=== PATIENT | female | born 1980 ===

== ENCOUNTER 2017-04-18 18:31 | Observation (INO) | payer OTHER ==
[2017-04-18] MEDS ORDERED: Sodium Chloride 0.9% 1,000 ML IV STA (19:05)
--- NOTE | 2017-04-18 19:10 | ED PDOC ---
HPI: Headache Time Seen by Provider: 04/18/17 18:45 Chief Complaint (Nursing): Headache Chief Complaint (Provider): Headache History Per: Patient History/Exam Limitations: no limitations Onset/Duration Of Symptoms: Days (1 week) Current Symptoms Are (Timing): Still Present Additional Complaint(s): Pt. with headache on the top of her head like a pounding. States no nausea, vomit, diarrhea, abd pain. Has no neck pain. No weakness, hearing issues, facial pain, numbness, tingles, vision changes. States here 2/6 for ear pain and headache. Had neg ct and given steroids and antibiotic drops for it. Not worst pain in her life. Past Medical History Reviewed: Historical Data, Nursing Documentation, Vital Signs Vital Signs: Last Vital Signs Temp 98.7 F 04/18/17 18:40 Pulse 88 04/18/17 18:40 Resp 18 04/18/17 18:40 BP 112/72 04/18/17 18:40 Pulse Ox 99 04/18/17 18:40 - Medical History PMH: Diabetes (prediabetes) - Surgical History Surgical History: No Surg Hx - Family History Family History: States: Unknown Family Hx - Living Arrangements Living Arrangements: With Family - Home Medications Home Medications: Ambulatory Orders Medication Instructions Recorded Methylprednisolone [Medrol Dose 4 mg PO DAILY #21 mg 03/31/17 Pack (21 tabs)] Ofloxacin Otic 0.3% [Floxin 0.3% 10 drop AD DAILY #1 bottle 03/31/17 Otic Soln] - Allergies Allergies/Adverse Reactions: Allergies Allergy/AdvReac Type Severity Reaction Status Date / Time No Known Allergies Allergy Verified 03/31/17 17:49 Review of Systems ROS Statement: Except As Marked, All Systems Reviewed And Found Negative Neurological: Positive for: Headache Physical Exam - Reviewed Nursing Documentation Reviewed: Yes Vital Signs Reviewed: Yes - Physical Exam Appears: Positive for: Uncomfortable Head Exam: Positive for: ATRAUMATIC, NORMAL INSPECTION, NORMOCEPHALIC Skin: Positive for: Normal Color, Warm, DRY Eye Exam: Positive for: EOMI, Normal appearance, PERRL ENT: Positive for: Normal ENT Inspection Neck: Positive for: Normal, Painless ROM, Supple Cardiovascular/Chest: Positive for: Regular Rate, Rhythm Respiratory: Positive for: CNT, Normal Breath Sounds Gastrointestinal/Abdominal: Positive for: Normal Exam, Bowel Sounds, Soft. Negative for: Tenderness Back: Positive for: Normal Inspection. Negative for: L CVA Tenderness, R CVA Tenderness Extremity: Positive for: Normal ROM. Negative for: Tenderness, Pedal Edema Neurologic/Psych: Positive for: Alert, public health worker II-XII, Oriented. Negative for: Motor/Sensory Deficits, Aphasia, Facial Droop - Laboratory Results Result Diagrams: 04/18/17 20:18 04/18/17 19:38 Interpretation Of Abn Labs: 6.5 hg - ECG O2 Sat by Pulse Oximetry: 99 Pulse Ox Interpretation: Normal - CT Scan/US head Other Rad Studies (CT/US): Read By Radiologist Other Rad Interpretation: no acute - Progress ED Course And Treament: 2049: Stable. AAOx3. Headache is gone. Anemia present. Pt. states vaginal bleeding off and on and heavy for sometime now. No bleeding currently (period finished). Spoke with Dr. Jain who will admit. Spoke to obgyn who will consult. No additional eval at this time. - Critical Care Total Time (In Min): 30 Documented Critical Care: Time excludes all time spent performint seperately billable procedures Disposition - Clinical Impression Clinical Impression: Headache, Anemia - Patient ED Disposition Is Patient to be Admitted: Yes - Disposition Disposition Time: 21:18 Condition: FAIR - Pt Status Changed To: Hospital Disposition Of: Observation - POA Present On Arrival: None
[2017-04-18 19:42] LABS: BASO # 0.1 K/uL (0.0-0.2); BASO % 0.8 % (0.0-2.0); EOS # 0.3 K/uL (0.0-0.7); EOS % 3.3 % (0.0-4.0); LYMPH # 2.3 K/uL (1.0-4.3); LYMPH % 29.9 % (20.0-40.0); MEAN CELL VOLUME 63.3 fl (81.0-99.0); MONO # 0.9 K/uL (0.0-0.8); MONO % 11.4 % (0.0-10.0); NEUT # 4.2 K/uL (1.8-7.0); NEUT % 54.6 % (50.0-75.0); NRBC % 0.4 % (0.0-0.0); RBC 3.59 Mil/uL (3.80-5.20); RED CELL DISTRIBUTION WIDTH 21.1 % (11.5-14.5); WHITE BLOOD COUNT 7.7 K/uL (4.8-10.8)
--- NOTE | 2017-04-18 19:53 | CT ---
EXAM: CT Head Without Intravenous Contrast CLINICAL HISTORY: 36 years old, female; Pain; Headache; Other: Pounding; Additional info: Headache. Sent phy. Doc. TECHNIQUE: Axial computed tomography images of the head/brain without intravenous contrast. All CT scans at this facility use one or more dose reduction techniques, viz.: automated exposure control; ma/kV adjustment per patient size (including targeted exams where dose is matched to indication; i.e. head); or iterative reconstruction technique. Coronal and sagittal reformatted images were created and reviewed. COMPARISON: CT - HEAD W/O CONTRAST 2017-03-31 18:16 FINDINGS: Brain: Unremarkable. No significant white matter disease. No edema. No intracranial mass, mass effect, or midline shift. Ventricles: Unremarkable. No ventriculomegaly. Bones/joints: Unremarkable. No acute fracture. Soft tissues: Unremarkable. Sinuses: Unremarkable as visualized. No acute sinusitis. Mastoid air cells: Unremarkable as visualized. No mastoid effusion. IMPRESSION: No acute intracranial abnormality.
[2017-04-18 20:29] LABS: BASO # 0.1 K/uL (0.0-0.2); BASO % 0.7 % (0.0-2.0); EOS # 0.3 K/uL (0.0-0.7); EOS % 3.6 % (0.0-4.0); LYMPH # 2.3 K/uL (1.0-4.3); LYMPH % 31.6 % (20.0-40.0); MEAN CORPUSCULAR HEMOGLOBIN 19.1 pg (27.0-31.0); MEAN CORPUSCULAR HGB CONC 30.3 g/dL (33.0-37.0); MONO % 13.3 % (0.0-10.0); NEUT # 3.7 K/uL (1.8-7.0); NEUT % 50.8 % (50.0-75.0); NRBC % 0.7 % (0.0-0.0); RBC 3.4 Mil/uL (3.80-5.20); RED CELL DISTRIBUTION WIDTH 21.3 % (11.5-14.5); WHITE BLOOD COUNT 7.2 K/uL (4.8-10.8)
[2017-04-18 20:33] LABS: HEMOGLOBIN 6.8 g/dL (12.0-16.0)
[2017-04-18 20:34] LABS: HEMOGLOBIN 6.5 g/dL (12.0-16.0)
[2017-04-18 20:35] LABS: MEAN CELL VOLUME 63.1 fl (81.0-99.0)
[2017-04-18 20:37] LABS: INR 1.2 (0.9-1.2); PROTHROMBIN TIME 12.8 Seconds (9.8-13.1)
[2017-04-18 20:54] LABS: BLOOD UREA NITROGEN 13 mg/dl (7-17); GFR AFRICAN-AMERICAN > 60; GFR NON-AFRICAN AMERICAN > 60
[2017-04-18 20:55] LABS: ALBUMIN 3.8 g/dL (3.5-5.0)
[2017-04-18 20:56] LABS: ALB/GLOB RATIO 1.1 (1.0-2.1)
[2017-04-18 20:57] LABS: ALT/SGPT 61 U/L (9-52); AST/SGOT 31 U/L (14-36)
[2017-04-19 00:44] LABS: FERRITIN 4.7 ng/Ml (6.24-137.0)
[2017-04-19 01:59] LABS: % IRON SATURATION 3 % (20-55); IRON 11 ug/dL (37-170); TOTAL IRON BINDING CAPACITY 335 ug/dL (250-450)
[2017-04-19] MEDS ORDERED: Pantoprazole 40 mg EC Tab PO SCH (09:00)
[2017-04-19 12:13] LABS: HEMOGLOBIN 9.3 g/dL (12.0-16.0); MEAN CELL VOLUME 67.9 fl (81.0-99.0); MEAN CORPUSCULAR HEMOGLOBIN 21.3 pg (27.0-31.0); MEAN CORPUSCULAR HGB CONC 31.3 g/dL (33.0-37.0); RBC 4.35 Mil/uL (3.80-5.20); RED CELL DISTRIBUTION WIDTH 24.2 % (11.5-14.5); WHITE BLOOD COUNT 7.9 K/uL (4.8-10.8)
--- NOTE | 2017-04-19 12:24 | CP.PCM.CON ---
<Sultan Nalini - Last Filed: 04/19/17 13:33> History of Present Illness - History of Present Illness History of Present Illness: SPORTS MARKETING COORDINATOR consult note for Dr. Dove 36 yo presented to ED on 04/18/17 with c/o headache, palpitation and fatigue for 2 weeks. In ED, pt's Hb was 6.8 and pt was admitted due to anemia. 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 Pt's menarche was at age 10 and states her menstruation has been 'always irregular'. Reports she gets period mostly every month which lasts for 7 days (first 2 days light and 4 days heavy requiring tapon change every 2 hours). Last menstruation was in 03/12/17( states it lasted for 3 weeks, ended in 04/05/17). Denies any vaginal bleeding now. Reports she is feeling much better after 2 units of blood transfusion. Still has some headache. Denies chest pain, dyspena, dizziness, palpitation or blurry vision now. Denies any hx blood transfusion in the past. Denies any family hx uterine CA. Pt sees insole stiffener Dr. Schroeder in [place]. States she had normal pap smear in 01/2017. States transvaginal US in 01/2017 showed polyps and has endometrial biopsy scheduled on 05/19/[address] Schroeder. Menarche: at 10 [place] hx: Irregular menstruation. LMP 03/12/17. Normal PAP smear. Denies hx STI. OB hx: 2 : 09/2005: due to failure to dilation. No other complication or blood transfusion 07/2010: repeat , no complication. Review of Systems - Constitutional Constitutional: absent: Chills, Fever - EENT Eyes: absent: Blurred Vision - Cardiovascular Cardiovascular: absent: Chest Pain, Diaphoresis - Respiratory Respiratory: absent: Cough - Gastrointestinal Gastrointestinal: absent: Abdominal Pain, Nausea, Vomiting - Reproductive: Female Reproductive:Female: Cycle Variable, Heavy Menses - Hematologic/Lymphatic Hematologic: absent: Easy Bruising Past Patient History - Past Medical History & Family History Past Medical History?: Yes - Past Social History Smoking Status: Never Smoked - CARDIAC Hx Cardiac Disorders: No (Denies) - PULMONARY Hx Respiratory Disorders: No - NEUROLOGICAL Hx Neurological Disorder: No - HEENT Hx HEENT Problems: No - RENAL Hx Chronic Kidney Disease: No - ENDOCRINE/METABOLIC Hx Endocrine Disorders: Yes Other/Comment: pre diabetes - HEMATOLOGICAL/ONCOLOGICAL Hx Blood Disorders: No Hx AIDS: No Hx Human Immunodeficiency Virus (HIV): No - INTEGUMENTARY Hx Dermatological Problems: No - MUSCULOSKELETAL/RHEUMATOLOGICAL Hx Musculoskeletal Disorders: No Hx Falls: No - GASTROINTESTINAL Hx Gastrointestinal Disorders: No - GENITOURINARY/GYNECOLOGICAL Hx Genitourinary Disorders: No - PSYCHIATRIC Hx Psychophysiologic Disorder: No Hx Substance Use: No - SURGICAL HISTORY Hx Surgeries: Yes Hx Section: Yes (x2) - ANESTHESIA Hx Anesthesia: Yes Hx Anesthesia Reactions: No Hx Malignant Hyperthermia: No Has any member of the family had a problem w/ anesthesia?: No Meds Allergies/Adverse Reactions: Allergies Allergy/AdvReac Type Severity Reaction Status Date / Time No Known Allergies Allergy Verified 03/31/17 17:49 - Medications Medications: Current Medications Acetaminophen (Tylenol 325mg Tab) 650 mg PO Q4 PRN PRN Reason: Headache Last Admin: 04/19/17 11:28 Dose: 650 mg Pantoprazole Sodium (Protonix Ec Tab) 40 mg PO DAILY AUGUSTIN Last Admin: 04/19/17 08:51 Dose: 40 mg Physical Exam - Constitutional Appears: Non-toxic, No Acute Distress - Head Exam Head Exam: ATRAUMATIC, NORMOCEPHALIC - Respiratory Exam Respiratory Exam: Clear to Auscultation Bilateral. absent: Rales, Rhonchi - Cardiovascular Exam Cardiovascular Exam: REGULAR RHYTHM, +S1, +S2 - GI/Abdominal Exam GI & Abdominal Exam: Normal Bowel Sounds, Soft. absent: Tenderness - Exam Additional comments: Deferred. - Neurological Exam Neurological exam: Alert, Oriented x3 - Psychiatric Exam Psychiatric exam: Normal Affect, Normal Mood Results - Vital Signs Recent Vital Signs: Last Vital Signs Temp 99.8 F H 04/19/17 11:28 Pulse 88 04/19/17 09:00 Resp 18 04/19/17 08:33 BP 120/77 04/19/17 08:33 Pulse Ox 99 04/19/17 08:33 - Labs Result Diagrams: 04/19/17 12:00 04/19/17 12:00 Labs: Laboratory Results - last 24 hr 04/18/17 04/18/17 04/18/17 19:38 19:38 19:38 WBC 7.7 RBC 3.59 L Hgb 6.8 L Hct 22.7 L MCV 63.3 L MCH 19.0 L MCHC 30.0 L RDW 21.1 H Plt Count 272 MPV 9.0 Neut % (Auto) 54.6 Lymph % (Auto) 29.9 [place] % (Auto) 11.4 H Eos % (Auto) 3.3 Baso % (Auto) 0.8 Neut # (Auto) 4.2 Lymph # (Auto) 2.3 [place] # (Auto) 0.9 H Eos # (Auto) 0.3 Baso # (Auto) 0.1 Retic Count PT 12.8 INR 1.2 APTT 27.0 Sodium 146 Potassium 3.3 L Chloride 104 Carbon Dioxide 29 Anion Gap 16 BUN 13 Creatinine 0.6 L Est GFR ( Amer) > 60 Est GFR (Non-Af Amer) > 60 Random Glucose 122 H Calcium 9.0 Iron TIBC % Saturation Ferritin Total Bilirubin 0.4 AST 31 ALT 61 H Alkaline Phosphatase 50 Total Protein 7.2 Albumin 3.8 Globulin 3.4 Albumin/Globulin Ratio 1.1 Vitamin B12 Blood Type Blood Type Confirm Antibody Screen Crossmatch BBK History Checked 04/18/17 04/18/17 04/18/17 20:00 20:18 21:06 WBC 7.2 RBC 3.40 L Hgb 6.5 L* Hct 21.5 L MCV 63.1 L MCH 19.1 L MCHC 30.3 L RDW 21.3 H Plt Count 269 MPV 9.0 Neut % (Auto) 50.8 Lymph % (Auto) 31.6 [place] % (Auto) 13.3 H Eos % (Auto) 3.6 Baso % (Auto) 0.7 Neut # (Auto) 3.7 Lymph # (Auto) 2.3 [place] # (Auto) 1.0 H Eos # (Auto) 0.3 Baso # (Auto) 0.1 Retic Count PT INR APTT Sodium Potassium Chloride Carbon Dioxide Anion Gap BUN Creatinine Est GFR ( Amer) Est GFR (Non-Af Amer) Random Glucose Calcium Iron TIBC % Saturation Ferritin Total Bilirubin AST ALT Alkaline Phosphatase Total Protein Albumin Globulin Albumin/Globulin Ratio Vitamin B12 Blood Type A POSITIVE Blood Type Confirm A POSITIVE Antibody Screen Negative Crossmatch See Detail BBK History Checked No verified bt 02/24/18 02/24/18 02/24/18 23:50 23:50 23:50 WBC RBC Hgb Hct MCV MCH MCHC RDW Plt Count MPV Neut % (Auto) Lymph % (Auto) [place] % (Auto) Eos % (Auto) Baso % (Auto) Neut # (Auto) Lymph # (Auto) [place] # (Auto) Eos # (Auto) Baso # (Auto) Retic Count 2.9 H PT INR APTT Sodium Potassium Chloride Carbon Dioxide Anion Gap BUN Creatinine Est GFR ( Amer) Est GFR (Non-Af Amer) Random Glucose Calcium Iron 11 L TIBC 335 % Saturation 3 L Ferritin 4.7 L Total Bilirubin AST ALT Alkaline Phosphatase Total Protein Albumin Globulin Albumin/Globulin Ratio Vitamin B12 465 Blood Type Blood Type Confirm Antibody Screen Crossmatch BBK History Checked 04/19/17 12:00 WBC 7.9 RBC 4.35 Hgb 9.3 L D Hct 29.6 L MCV 67.9 L D MCH 21.3 L MCHC 31.3 L RDW 24.2 H Plt Count 265 MPV Neut % (Auto) Lymph % (Auto) [place] % (Auto) Eos % (Auto) Baso % (Auto) Neut # (Auto) Lymph # (Auto) [place] # (Auto) Eos # (Auto) Baso # (Auto) Retic Count PT INR APTT Sodium Potassium Chloride Carbon Dioxide Anion Gap BUN Creatinine Est GFR ( Amer) Est GFR (Non-Af Amer) Random Glucose Calcium Iron TIBC % Saturation Ferritin Total Bilirubin AST ALT Alkaline Phosphatase Total Protein Albumin Globulin Albumin/Globulin Ratio Vitamin B12 Blood Type Blood Type Confirm Antibody Screen Crossmatch BBK History Checked Assessment & Plan - Assessment and Plan (Free Text) Assessment: Assessment: 36 yo female admitted to [facility] for symptomatic anemia and has hx menometrorrhagia Plan: -Transabdominal US -Pt received 2 units of PRBC -H & H: 9.3/29.6 after tranfusion. -Pt is feeling significantly better after transfusion. -Pt has an appointment with Dr. Schroeder on 05/19/17 for endometrial biopsy. -Advised to f/u with Dr. Schroeder as scheduled. -Pt is cleared to discharge from EMPLOYER RELATIONS REPRESENTATIVE standpoint. Case d/w with OB attending Dr. Dove <Nuno Dove O - Last Filed: 04/20/17 10:26> Results - Vital Signs Recent Vital Signs: Last Vital Signs Temp 98.6 F 04/19/17 16:55 Pulse 84 04/19/17 16:55 Resp 18 04/19/17 16:55 BP 100/68 04/19/17 16:55 Pulse Ox 99 04/19/17 16:55 - Labs Result Diagrams: 04/19/17 12:00 04/19/17 12:00 Labs: Laboratory Results - last 24 hr 04/19/17 04/19/17 04/19/17 12:00 12:00 12:00 WBC 7.9 RBC 4.35 Hgb 9.3 L D Hct 29.6 L MCV 67.9 L D MCH 21.3 L MCHC 31.3 L RDW 24.2 H Plt Count 265 PT 13.0 INR 1.2 APTT 27.7 Sodium 142 Potassium 3.5 L Chloride 100 Carbon Dioxide 27 Anion Gap 19 BUN 8 Creatinine 0.7 Est GFR ( Amer) > 60 Est GFR (Non-Af Amer) > 60 Random Glucose 103 Calcium 8.6 TSH 3rd Generation 2.44 Attending/Attestation - Attestation I have personally seen and examined this patient.: Yes I have fully participated in the care of the patient.: Yes I have reviewed all pertinent clinical information: Yes Notes (Text): 04/20/17 10:26Pt was seen and discussed with Resident and I agree with the above.
[2017-04-19 12:26] LABS: BLOOD UREA NITROGEN 8 mg/dl (7-17); CALCIUM 8.6 mg/dL (8.4-10.2); GFR AFRICAN-AMERICAN > 60; GFR NON-AFRICAN AMERICAN > 60; INR 1.2 (0.9-1.2); PARTIAL THROMBOPLASTIN TIME 27.7 Seconds (25.6-37.1)
[2017-04-19] MEDS ORDERED: Potassium Chloride 20 mEq ER Tab PO STA (13:27)
--- NOTE | 2017-04-19 13:28 | CP.PCM.HP ---
Past Patient History - Past Medical History & Family History Past Medical History?: Yes - Past Social History Smoking Status: Never Smoked - CARDIAC Hx Cardiac Disorders: No (Denies) - PULMONARY Hx Respiratory Disorders: No - NEUROLOGICAL Hx Neurological Disorder: No - HEENT Hx HEENT Problems: No - RENAL Hx Chronic Kidney Disease: No - ENDOCRINE/METABOLIC Hx Endocrine Disorders: Yes Other/Comment: pre diabetes - HEMATOLOGICAL/ONCOLOGICAL Hx Blood Disorders: No Hx AIDS: No Hx Human Immunodeficiency Virus (HIV): No - INTEGUMENTARY Hx Dermatological Problems: No - MUSCULOSKELETAL/RHEUMATOLOGICAL Hx Musculoskeletal Disorders: No Hx Falls: No - GASTROINTESTINAL Hx Gastrointestinal Disorders: No - GENITOURINARY/GYNECOLOGICAL Hx Genitourinary Disorders: No - PSYCHIATRIC Hx Psychophysiologic Disorder: No Hx Substance Use: No - SURGICAL HISTORY Hx Surgeries: Yes Hx Section: Yes (x2) - ANESTHESIA Hx Anesthesia: Yes Hx Anesthesia Reactions: No Hx Malignant Hyperthermia: No Has any member of the family had a problem w/ anesthesia?: No Meds Allergies/Adverse Reactions: Allergies Allergy/AdvReac Type Severity Reaction Status Date / Time No Known Allergies Allergy Verified 03/31/17 17:49 Results - Vital Signs Recent Vital Signs: Last Vital Signs Temp 99.8 F H 04/19/17 11:28 Pulse 88 04/19/17 09:00 Resp 18 04/19/17 08:33 BP 120/77 04/19/17 08:33 Pulse Ox 99 04/19/17 08:33 - Labs Result Diagrams: 04/19/17 12:00 04/19/17 12:00 Labs: Laboratory Results - last 24 hr 04/18/17 04/18/17 04/18/17 19:38 19:38 19:38 WBC 7.7 RBC 3.59 L Hgb 6.8 L Hct 22.7 L MCV 63.3 L MCH 19.0 L MCHC 30.0 L RDW 21.1 H Plt Count 272 MPV 9.0 Neut % (Auto) 54.6 Lymph % (Auto) 29.9 [place] % (Auto) 11.4 H Eos % (Auto) 3.3 Baso % (Auto) 0.8 Neut # (Auto) 4.2 Lymph # (Auto) 2.3 [place] # (Auto) 0.9 H Eos # (Auto) 0.3 Baso # (Auto) 0.1 Retic Count PT 12.8 INR 1.2 APTT 27.0 Sodium 146 Potassium 3.3 L Chloride 104 Carbon Dioxide 29 Anion Gap 16 BUN 13 Creatinine 0.6 L Est GFR ( Amer) > 60 Est GFR (Non-Af Amer) > 60 Random Glucose 122 H Calcium 9.0 Iron TIBC % Saturation Ferritin Total Bilirubin 0.4 AST 31 ALT 61 H Alkaline Phosphatase 50 Total Protein 7.2 Albumin 3.8 Globulin 3.4 Albumin/Globulin Ratio 1.1 Vitamin B12 TSH 3rd Generation Blood Type Blood Type Confirm Antibody Screen Crossmatch BBK History Checked 04/18/17 04/18/17 04/18/17 20:00 20:18 21:06 WBC 7.2 RBC 3.40 L Hgb 6.5 L* Hct 21.5 L MCV 63.1 L MCH 19.1 L MCHC 30.3 L RDW 21.3 H Plt Count 269 MPV 9.0 Neut % (Auto) 50.8 Lymph % (Auto) 31.6 [place] % (Auto) 13.3 H Eos % (Auto) 3.6 Baso % (Auto) 0.7 Neut # (Auto) 3.7 Lymph # (Auto) 2.3 [place] # (Auto) 1.0 H Eos # (Auto) 0.3 Baso # (Auto) 0.1 Retic Count PT INR APTT Sodium Potassium Chloride Carbon Dioxide Anion Gap BUN Creatinine Est GFR ( Amer) Est GFR (Non-Af Amer) Random Glucose Calcium Iron TIBC % Saturation Ferritin Total Bilirubin AST ALT Alkaline Phosphatase Total Protein Albumin Globulin Albumin/Globulin Ratio Vitamin B12 [facility] 3rd Generation Blood Type A POSITIVE Blood Type Confirm A POSITIVE Antibody Screen Negative Crossmatch See Detail BBK History Checked No verified bt 04/18/17 04/18/17 04/18/17 23:50 23:50 23:50 WBC RBC Hgb Hct MCV MCH MCHC RDW Plt Count MPV Neut % (Auto) Lymph % (Auto) [place] % (Auto) Eos % (Auto) Baso % (Auto) Neut # (Auto) Lymph # (Auto) [place] # (Auto) Eos # (Auto) Baso # (Auto) Retic Count 2.9 H PT INR APTT Sodium Potassium Chloride Carbon Dioxide Anion Gap BUN Creatinine Est GFR ( Amer) Est GFR (Non-Af Amer) Random Glucose Calcium Iron 11 L TIBC 335 % Saturation 3 L Ferritin 4.7 L Total Bilirubin AST ALT Alkaline Phosphatase Total Protein Albumin Globulin Albumin/Globulin Ratio Vitamin B12 465 TSH 3rd Generation Blood Type Blood Type Confirm Antibody Screen Crossmatch BBK History Checked 04/19/17 04/19/17 04/19/17 12:00 12:00 12:00 WBC 7.9 RBC 4.35 Hgb 9.3 L D Hct 29.6 L MCV 67.9 L D MCH 21.3 L MCHC 31.3 L RDW 24.2 H Plt Count 265 MPV Neut % (Auto) Lymph % (Auto) [place] % (Auto) Eos % (Auto) Baso % (Auto) Neut # (Auto) Lymph # (Auto) [place] # (Auto) Eos # (Auto) Baso # (Auto) Retic Count PT 13.0 INR 1.2 APTT 27.7 Sodium 142 Potassium 3.5 L Chloride 100 Carbon Dioxide 27 Anion Gap 19 BUN 8 Creatinine 0.7 Est GFR ( Amer) > 60 Est GFR (Non-Af Amer) > 60 Random Glucose 103 Calcium 8.6 Iron TIBC % Saturation Ferritin Total Bilirubin AST ALT Alkaline Phosphatase Total Protein Albumin Globulin Albumin/Globulin Ratio Vitamin B12 TSH 3rd Generation 2.44 Blood Type Blood Type Confirm Antibody Screen Crossmatch BBK History Checked
--- NOTE | 2017-04-19 13:53 | US ---
HISTORY: Severe Anemia, H/O Vaginal Bleed COMPARISON: None available TECHNIQUE: Transabdominal and transvaginal pelvic ultrasonography were performed with longitudinal and transverse images have been submitted for interpretation. FINDINGS: UTERUS: Measures 11.2 x 5.3 x 6.3 cm. Uterus is mildly anteverted with mildly heterogeneous echotexture throughout the myometrium but without discrete mass or cyst related. ENDOMETRIUM: Measures 6.9 mm in diameter. Unremarkable. CERVIX: Small both these cysts in the cervix which is otherwise unremarkable. RIGHT OVARY: Excessive bowel gas obscures right adnexal compartment with the right ovary not identified. LEFT OVARY: Measures 3.7 x 1.6 x 2.9 cm. No solid mass. Normal flow. A few small cysts are seen scattered at the left ovary likely reflecting developing follicles. The largest measures 1.4 cm. FREE FLUID: No significant free fluid noted. OTHER FINDINGS: None. IMPRESSION: Nonvisualized right ovary due to excessive bowel gas at the right adnexal compartment. The left ovary appears unremarkable. The remainder of the examination is also unremarkable.
--- NOTE | 2017-04-19 14:52 | CARD ---
APPROVED REPORT EKG Measurement Heart [id number] ID [id number] <Conclusion> Normal sinus rhythm Normal ECG
[2017-04-19 16:56] VITALS: BP 100/68; PULSE 84; RESP 18; TEMP 98.6; O2SAT 99
--- NOTE | 2017-04-19 18:18 | CP.PCM.DIS ---
Provider - Provider Date of Admission: 04/18/17 20:49 Attending physician: Nik Jain MD Time Spent in preparation of Discharge (in minutes): 25 Hospital Course - Lab Results Lab Results: Most Recent Lab Values WBC 7.9 K/uL (4.8-10.8) 04/19/17 12:00 RBC 4.35 Mil/uL (3.80-5.20) 04/19/17 12:00 Hgb 9.3 g/dL (12.0-16.0) L D 04/19/17 12:00 Hct 29.6 % (34.0-47.0) L 04/19/17 12:00 MCV 67.9 fl (81.0-99.0) L D 04/19/17 12:00 MCH 21.3 pg (27.0-31.0) L 04/19/17 12:00 MCHC 31.3 g/dL (33.0-37.0) L 04/19/17 12:00 RDW 24.2 % (11.5-14.5) H 04/19/17 12:00 Plt Count 265 K/uL (130-400) 04/19/17 12:00 MPV 9.0 fl (7.2-11.7) 04/18/17 20:18 Neut % (Auto) 50.8 % (50.0-75.0) 04/18/17 20:18 Lymph % (Auto) 31.6 % (20.0-40.0) 04/18/17 20:18 [place] % (Auto) 13.3 % (0.0-10.0) H 04/18/17 20:18 Eos % (Auto) 3.6 % (0.0-4.0) 04/18/17 20:18 Baso % (Auto) 0.7 % (0.0-2.0) 04/18/17 20:18 Neut # (Auto) 3.7 K/uL (1.8-7.0) 04/18/17 20:18 Lymph # (Auto) 2.3 K/uL (1.0-4.3) 04/18/17 20:18 [place] # (Auto) 1.0 K/uL (0.0-0.8) H 04/18/17 20:18 Eos # (Auto) 0.3 K/uL (0.0-0.7) 04/18/17 20:18 Baso # (Auto) 0.1 K/uL (0.0-0.2) 04/18/17 20:18 Retic Count 2.9 % (0.5-1.5) H 04/18/17 23:50 PT 13.0 Seconds (9.8-13.1) 04/19/17 12:00 INR 1.2 (0.9-1.2) 04/19/17 12:00 APTT 27.7 Seconds (25.6-37.1) 04/19/17 12:00 Sodium 142 mmol/l (132-148) 04/19/17 12:00 Potassium 3.5 MMOL/L (3.6-5.0) L 04/19/17 12:00 Chloride 100 mmol/L (98-107) 04/19/17 12:00 Carbon Dioxide 27 mmol/L (22-30) 04/19/17 12:00 Anion Gap 19 (10-20) 04/19/17 12:00 BUN 8 mg/dl (7-17) 04/19/17 12:00 Creatinine 0.7 mg/dl (0.7-1.2) 04/19/17 12:00 Est GFR ( Amer) > 60 04/19/17 12:00 Est GFR (Non-Af Amer) > 60 04/19/17 12:00 Random Glucose 103 mg/dL (65-105) 04/19/17 12:00 Calcium 8.6 mg/dL (8.4-10.2) 04/19/17 12:00 Iron 11 ug/dL (37-170) L 04/18/17 23:50 TIBC 335 ug/dL (250-450) 04/18/17 23:50 % Saturation 3 % (20-55) L 04/18/17 23:50 Ferritin 4.7 ng/Ml (6.24-137.0) L 04/18/17 23:50 Total Bilirubin 0.4 mg/dl (0.2-1.3) 04/18/17 19:38 AST 31 U/L (14-36) 04/18/17 19:38 ALT 61 U/L (9-52) H 04/18/17 19:38 Alkaline Phosphatase 50 U/L (38-126) 04/18/17 19:38 Total Protein 7.2 G/DL (6.3-8.2) 04/18/17 19:38 Albumin 3.8 g/dL (3.5-5.0) 04/18/17 19:38 Globulin 3.4 gm/dL (2.2-3.9) 04/18/17 19:38 Albumin/Globulin Ratio 1.1 (1.0-2.1) 04/18/17 19:38 Vitamin B12 465 pg/mL (239-931) 04/18/17 23:50 TSH 3rd Generation 2.44 mIU/ML (0.46-4.68) 04/19/17 12:00 Blood Type A POSITIVE 04/18/17 20:00 Blood Type Confirm A POSITIVE 04/18/17 21:06 Antibody Screen Negative 04/18/17 20:00 Crossmatch See Detail 04/18/17 20:00 BBK History Checked No verified bt 04/18/17 20:00 Discharge Exam - Head Exam Head Exam: ATRAUMATIC, NORMOCEPHALIC Discharge Plan - Discharge Medications Prescriptions: Ferrous Sulfate 325 mg PO TID #90 tablet - Follow Up Plan Condition: FAIR Disposition: HOME/ ROUTINE
[2017-04-20 13:25] LABS: FOLATE 8.3 ng/mL
== END 2017-04-19 18:50 | disposition home or self-care (01) ==
LOC: H.ER 18:31 → H.ERHOLD 20:49 → H.TEL 21:39
PROVIDERS: ADMIT Internal Medicine; ATTEND Internal Medicine
DX: D64.9 Anemia, unspecified (principal); E11.9 Type 2 diabetes mellitus without complications; N92.1 Excessive and frequent menstruation with irregular cycle; R51 Headache
CPT/HCPCS: 36415; 36430; 70450; 76830; 76856; 80048; 80053; 81025; 82607; 82728; 82746; 83540; 83550; 84443; 85025; 85027; 85044; 85610; 85730; 86850; 86900; 86920; 93005; 96360; 99284; G0378; J2765; J7040; P9051